=== PATIENT | female | born 1965 | race Caucasian/White ===

== ENCOUNTER → 2018-01-25 | Outpatient (REF) | payer OTHER ==
[2018-01-25 21:17] LABS: CHLAMYDIA DNA AMPLIFICATION NEGATIVE (NEGATIVE); GC DNA AMPLIFICATION NEGATIVE (NEGATIVE)
== END ==
LOC: M SFHCLERA 16:46
DX: R30.0 Dysuria (principal)

== ENCOUNTER 2022-04-24 17:14 | Emergency (ER) | payer BC, OTHER ==
[~2022-04-24] VITALS: Ht 157.5 cm; Wt 94.3 kg
[2022-04-24] MEDS ORDERED: ROSU5TAB5 (17:35)
[2022-04-24] MEDS ORDERED: LISI10TA22 (17:35)
[2022-04-24] MEDS ORDERED: XARE20TA (17:35)
[2022-04-24] MEDS ORDERED: ZYRTTAB8 PO (17:35)
[2022-04-24] MEDS ORDERED: LEXA1TAB2 (17:35)
[2022-04-24] MEDS ORDERED: LEVO88TA3 (17:35)
[2022-04-24] MEDS ORDERED: METF-839 PO (17:35)
[2022-04-24] MEDS ORDERED: FAMO40TA3 (17:35)
[2022-04-25 00:48] VITALS: BP 150/64
== END 2022-04-25 02:37 | disposition home or self-care (01) ==
LOC: M ED 17:14
DX: R22.42 Localized swelling, mass and lump, left lower limb (principal); I10 Essential (primary) hypertension; E78.5 Hyperlipidemia, unspecified; Z86.718 Personal history of other venous thrombosis and embolism; Z88.5 Allergy status to narcotic agent; Z88.8 Allergy status to other drugs, medicaments and biological substances; Z79.899 Other long term (current) drug therapy; Z79.01 Long term (current) use of anticoagulants; Z79.890 Hormone replacement therapy